=== PATIENT | female | born 1980 | race Caucasian/White ===

== ENCOUNTER 2017-01-12 16:47 | Emergency (ER) | payer OTHER ==
[~2017-01-12] VITALS: Ht 157.5 cm; Wt 85.0 kg
[2017-01-12 16:54] VITALS: BP 170/94; PULSE 88; RESP 16; TEMP 98.8; O2SAT 98
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
[2017-01-12] MEDS ORDERED: CYCL1TAB29 PO (17:26)
[2017-01-12] MEDS ORDERED: NAPR500 PO (17:26)
== END 2017-01-12 17:55 | disposition home or self-care (01) ==
LOC: PHEFT 16:47
DX: S39.012A Strain of muscle, fascia and tendon of lower back, initial encounter (principal); S60.212A Contusion of left wrist, initial encounter; V49.40XA Driver injured in collision with unspecified motor vehicles in traffic accident, initial encounter; Y92.410 Unspecified street and highway as the place of occurrence of the external cause
CPT/HCPCS: 99283; L3908